=== PATIENT | female | born 1955 | race Hispanic/Latino ===

== ENCOUNTER → 2024-11-18 | Outpatient (CLI) | payer MEDICARE, OTHER ==
--- NOTE | 2024-11-18 10:35 | HMCIMG ---
BONE DENSITOMETRY: HISTORY: Age-related osteoporosis without current pathological fracture. FINDINGS: BMD measured at AP spine L1-L4 is 0.589 g/cm2 with a T-score of -2.2, bone density values which fall within the Osteopenia. Treatment and follow-up recommended. BMD measured at Right Femoral Neck is 0.661 g/cm2 with a T-score of -0.9, bone density values which fall within the Normal bone mineral density IMPRESSION: Osteopenia. Treatment and follow-up recommended.
== END | disposition home or self-care (01) ==
LOC: RAH 09:28
PROVIDERS: ATTEND Internal Medicine
DX: M85.88 Other specified disorders of bone density and structure, other site (principal); M81.0 Age-related osteoporosis without current pathological fracture
CPT/HCPCS: 77080